=== PATIENT | male | born 1965 | race Caucasian/White ===

== ENCOUNTER 2023-04-12 17:40 | Emergency (ER) | payer OTHER ==
[2023-04-12 18:30] LABS: BASOPHILS ABSOLUTE AUTO 0.04 10^3/uL (0.00-0.50); BASOPHILS PERCENT AUTO 0.7 % (0-1); EOSINOPHILS ABSOLUTE AUTO 0.11 10^3/uL (0.00-1.50); EOSINOPHILS PERCENT AUTO 1.9 % (0-6); HEMATOCRIT 45.1 % (42.0-52.0); HEMOGLOBIN 15.2 g/dL (14.0-18.0); IMMATURE GRAN ABSOLUTE AUTO 0.03 10^3/uL (0.00-0.49); IMMATURE GRAN PERCENT AUTO 0.5 % (0.0-4.9); LYMPHOCYTES ABSOLUTE AUTO 1.53 10^3/uL (0.60-5.00); LYMPHOCYTES PERCENT AUTO 26.7 % (24-44); MEAN CORPUSCULAR HEMOGLOBIN 32.7 pg (27.0-32.0); MEAN CORPUSCULAR HGB CONC 33.7 g/dL (32.0-36.0); MONOCYTES ABSOLUTE AUTO 0.71 10^3/uL (0.00-1.50); MONOCYTES PERCENT AUTO 12.4 % (0-10); NEUTROPHILS ABSOLUTE AUTO 3.31 x10^3/uL (1.80-8.00); NEUTROPHILS PERCENT AUTO 57.8 % (41-71); PLATELET COUNT,PLT 198 10^3/uL (150-400); RED BLOOD CELL COUNT 4.65 x10^6/uL (4.50-6.00); WHITE BLOOD CELL COUNT,WBC 5.7 10^3/uL (4.0-11.0)
[2023-04-12 18:32] LABS: COLOR,URINE RED (YELLOW); GLUCOSE,URINE 100 mg/dL (NEGATIVE); KETONES,URINE 80 mg/dL (NEGATIVE); LEUKOCYTE ESTERASE,URINE LARGE (NEGATIVE); NITRITE,URINE POSITIVE (NEGATIVE); OCCULT BLOOD,URINE LARGE (NEGATIVE); PH,URINE >= 9.0 (4.5-8.0); PROTEIN,URINE >=300 mg/dL (NEGATIVE); UROBILINOGEN,URINE >=8.0 EU/dL (0.2-1.0)
[2023-04-12] MEDS ORDERED: Iopamidol 755 Mg/ML 100 ML Bottle IVPUSH ONE (18:32)
[2023-04-12 18:36] LABS: BILIRUBIN,URINE LARGE (NEGATIVE)
[2023-04-12 18:41] LABS: APPEARANCE,URINE TURBID (CLEAR)
[2023-04-12 18:42] LABS: BACTERIA,URINE RARE /HPF (NOT SEEN); EPITHELIAL CELLS,URINE NOT SEEN /HPF (NOT SEEN); RBC CLUMPS,URINE PRESENT /HPF (NOT SEEN); RBC,URINE >100 /HPF (0-5)
[2023-04-12 18:46] LABS: ALBUMIN 3.9 g/dL (3.4-5.0); BILIRUBIN TOTAL 1.2 mg/dL (0.0-1.0); CALCIUM 9.7 mg/dL (8.4-10.1); CREATININE 1.1 mg/dL (0.7-1.3); EST CRCL DRUG DOSING (CG) 77.01 mL/min; MAGNESIUM 1.8 mg/dL (1.8-2.4); POTASSIUM,K 3.9 mEq/L (3.5-5.0); PROTEIN TOTAL,TP 8.2 g/dL (6.4-8.2)
[2023-04-12] MEDS ORDERED: cefTRIAXone 2 GM Vial IVPUSH ONE (19:54)
== END 2023-04-12 21:32 ==
LOC: CC.ED 17:40
DX: N30.01 Acute cystitis with hematuria (principal); N28.89 Other specified disorders of kidney and ureter
CPT/HCPCS: 36415; 74177; 80053; 81001; 83735; 85025; 87086; 96374; 99284-25; J0696